=== PATIENT | female | born 1960 | race Caucasian/White ===

== ENCOUNTER 2017-07-05 15:02 | Emergency (ER) | payer BC ==
[~2017-07-05] VITALS: Ht 165.1 cm; Wt 70.3 kg
[2017-07-05] MEDS ORDERED: TOPROL XL25 M1 (15:47)
[2017-07-05] MEDS ORDERED: NORVASC10 MG (15:47)
== END 2017-07-05 18:09 | disposition home or self-care (01) ==
LOC: ER 15:02
DX: J06.9 Acute upper respiratory infection, unspecified (principal)

== ENCOUNTER → 2017-08-19 | Outpatient (CLI) | payer BC ==
[~2017-08-19] MED LIST: NORVASC10 MG; TOPROL XL25 M1
== END | disposition home or self-care (01) ==
LOC: LAB 12:01
DX: I10 Essential (primary) hypertension (principal); E78.4 Other hyperlipidemia; R73.9 Hyperglycemia, unspecified